=== PATIENT | male | born 2000 | race African-American/Black ===

== ENCOUNTER 2024-01-18 05:30 | Emergency (ER) | payer BC ==
[~2024-01-18] VITALS: Ht 195.6 cm; Wt 114.1 kg
[2024-01-18 05:34] VITALS: BP 138/93
[2024-01-18] MEDS ORDERED: Albuterol/Ipratropium 3 MG-0.5 MG/3 ML Neb Soln IH ONE (05:45)
[2024-01-18] MEDS ORDERED: Albuterol 90 MCG/PUFF 8 GM MDI IH ONE (05:45)
[2024-01-18] MEDS ORDERED: predniSONE 20 MG TAB PO ONE (05:45)
[2024-01-18] MEDS ORDERED: PREDNISONE20 MG PO (06:03)
[2024-01-18 06:14] VITALS: PULSE 71; TEMP 98.2
== END 2024-01-18 06:15 | disposition home or self-care (01) ==
LOC: COL.ER 05:30
DX: J45.901 Unspecified asthma with (acute) exacerbation (principal)
CPT/HCPCS: J7512